=== PATIENT | male | born 1945 | race Caucasian/White ===

== ENCOUNTER 2017-03-18 14:21 | Observation (INO) | payer MEDICARE, OTHER ==
[~2017-03-18] VITALS: Ht 177.8 cm; Wt 79.9 kg
[~2017-03-18 14:21] MED LIST: ASPIRIN E.C. 8181 MG PO; CARDURA 8MG TAB8 MG PO; OMEGA-31 SGL PO; PAXIL 20MG20 MG PO; PRINIVIL20 MG PO; VIAGRA50 M1; ZOCOR 40MG40 MG PO
[2017-03-18] MEDS ORDERED: MULTI VITAMINS1 TAB PO (14:45)
[2017-03-18 15:29] LABS: BASO % 0.3 % (0.0-2.0); EOS # 0.2 (0.0-0.7); EOS % 1.5 % (0-4.0); GRAN # 9.7 (1.4-6.5); GRAN % 78.4 % (42.2-75.2); HEMATOCRIT 42.3 % (42.0-52.0); HEMOGLOBIN 14.2 g/dl (13.5-18.0); LYMPH # 1.8 (1.2-3.4); LYMPH % 14.2 % (20.0-51.0); MEAN CELL VOLUME 89 fl (80.0-100.0); MEAN CORPUSCULAR HEMOGLOBIN 30 pg (27.0-31.0); MEAN CORPUSCULAR HGB CONC 34 g/dl (33.0-37.0); MEAN PLATELET VOLUME 9.7 fl (7.4-10.4); MONO # 0.7 (0.1-0.6); MONO % 5.4 % (1.7-9.3); PLATELET COUNT 223 K/mm3 (130-400); RED BLOOD COUNT 4.75 M/mm3 (4.20-5.60); WHITE BLOOD COUNT 12.3 K/mm3 (4.8-10.8)
[2017-03-18 15:42] VITALS: BP 123/59; PULSE 86
[2017-03-18 15:42] LABS: ADJUSTED CALCIUM 9.2 mg/dL (8.4-10.2); ALANINE AMINOTRANSFERASE 29 U/L (21-72); ALBUMIN 3.4 gm/dL (3.5-5.0); ALKALINE PHOSPHATASE 56 U/L (50-136); ANION GAP 8 mmol/L (7-16); BILIRUBIN,TOTAL 0.6 mg/dL (0.0-1.0); BLOOD UREA NITROGEN 20 mg/dL (9-20); CALCIUM 8.7 mg/dL (8.4-10.2); CARBON DIOXIDE 25 mmol/L (22-30); CHLORIDE 106 mmol/L (98-107); CREATININE, serum 0.87 mg/dL (0.66-1.25); GLUCOSE 158 mg/dL (74-106); POTASSIUM 3.8 mmol/L (3.4-5.0); SODIUM 139 mmol/L (137-145); TOTAL PROTEIN 6.1 gm/dL (6.4-8.2)
[2017-03-18 15:51] LABS: INR 1.1 (0.8-3.0); PROTHROMBIN TIME 12.4 SECONDS (9.7-12.8)
[2017-03-18 15:53] LABS: PARTIAL THROMBOPLASTIN TIME 28.3 SECONDS (26.0-37.0)
[2017-03-18 15:55] LABS: TROPONIN-I < 0.012 ng/mL (0.000-0.034)
[2017-03-18 15:57] LABS: PROLACTIN 48.8 ng/mL (3.7-17.9)
[2017-03-18 18:49] VITALS: BP 145/67; PULSE 78
[2017-03-18 21:02] VITALS: BP 137/66; PULSE 75; TEMP 97.2
[2017-03-18] MEDS ORDERED: FLOMAX 0.40.4 MG/CAP PO (21:33)
[2017-03-18] MEDS ORDERED: MOBIC 7.5MG7.5 MG (21:34)
[2017-03-18 22:48] LABS: MAGNESIUM 2.1 mg/dL (1.6-2.3); PHOSPHOROUS 2.6 mg/dL (2.5-4.5)
[2017-03-18 22:49] LABS: TSH w REFLEX 1.87 uIU/mL (0.465-4.680)
[2017-03-19 00:08] LABS: MUCOUS Present /lpf; PH 5 (5-8); SQUAMOUS EPITHELIAL 0-2 /hpf; URINE APPEARANCE Clear; URINE BACTERIA None Seen /hpf; URINE BILIRUBIN Negative (NEGATIVE); URINE BLOOD Negative (NEGATIVE); URINE COLOR Yellow; URINE GLUCOSE Negative (NEGATIVE); URINE KETONE Negative (NEGATIVE); URINE LEUKOCYTE ESTERASE Negative (NEGATIVE); URINE PROTEIN(semi-quant) Negative (NEGATIVE); URINE RBC 0-2 /hpf; URINE UROBILINOGEN Negative (NEGATIVE); URINE WBC 0-2 /hpf
[2017-03-19 00:10] LABS: COLLECTION METHOD CLEAN CATCH
[2017-03-19 00:53] VITALS: BP 137/65; PULSE 79; TEMP 98
[2017-03-19 04:18] VITALS: BP 137/65; PULSE 75; TEMP 97.9
[2017-03-19 06:58] LABS: BASO % 0.5 % (0.0-2.0); EOS # 0.2 (0.0-0.7); EOS % 2.6 % (0-4.0); GRAN # 5.2 (1.4-6.5); GRAN % 58.8 % (42.2-75.2); HEMATOCRIT 43.3 % (42.0-52.0); HEMOGLOBIN 14.2 g/dl (13.5-18.0); LYMPH # 2.8 (1.2-3.4); LYMPH % 31.2 % (20.0-51.0); MEAN CELL VOLUME 90 fl (80.0-100.0); MEAN CORPUSCULAR HEMOGLOBIN 30 pg (27.0-31.0); MEAN CORPUSCULAR HGB CONC 33 g/dl (33.0-37.0); MEAN PLATELET VOLUME 9.8 fl (7.4-10.4); MONO # 0.6 (0.1-0.6); MONO % 6.7 % (1.7-9.3); PLATELET COUNT 230 K/mm3 (130-400); RED BLOOD COUNT 4.79 M/mm3 (4.20-5.60); WHITE BLOOD COUNT 8.9 K/mm3 (4.8-10.8)
[2017-03-19 07:09] LABS: CALCIUM 8.8 mg/dL (8.4-10.2); CREATININE, serum 0.75 mg/dL (0.66-1.25); POTASSIUM 4.1 mmol/L (3.4-5.0)
[2017-03-19 08:17] VITALS: BP 136/71; PULSE 70; TEMP 98
[2017-03-19 12:06] VITALS: BP 140/70; PULSE 73; TEMP 98.3
[2017-03-19 16:54] VITALS: BP 130/67; PULSE 56; TEMP 98.5
[2017-03-19 20:02] VITALS: BP 125/43; PULSE 75; TEMP 98.5
[2017-03-20 00:53] VITALS: BP 109/44; PULSE 64; TEMP 98.4
[2017-03-20 04:09] VITALS: BP 140/50; PULSE 72; TEMP 98.5
[2017-03-20 08:00] VITALS: BP 143/68; PULSE 70; TEMP 97.3
== END 2017-03-20 12:19 | disposition home or self-care (01) ==
LOC: COL.ER 14:21 → MEDICAL 19:07
PROVIDERS: Emergency Medicine; Nurse Practitioner Family
DX: R55 Syncope and collapse (principal); I10 Essential (primary) hypertension; R35.0 Frequency of micturition; E78.5 Hyperlipidemia, unspecified; F41.9 Anxiety disorder, unspecified; Z79.82 Long term (current) use of aspirin; F17.210 Nicotine dependence, cigarettes, uncomplicated
CPT/HCPCS: A9585; G0378; G8978-GP; G8979-GP; G8987-GO; G8988-GO; J1650; J7030; J7050; Q9967